=== PATIENT | male | born 1955 | race Caucasian/White ===

== ENCOUNTER 2017-05-05 07:21 | Emergency (ER) | payer OTHER ==
[~2017-05-05] VITALS: Ht 175.3 cm; Wt 73.0 kg
[2017-05-05 08:08] LABS: CLARITY URINE CLEAR (CLEAR); COLOR URINE YELLOW (YELLOW); GLUCOSE URINE NEGATIVE (NEGATIVE); KETONES URINE NEGATIVE (NEGATIVE); LEUKOCYTE ESTERASE URINE NEGATIVE (NEGATIVE); NITRITE URINE NEGATIVE (NEGATIVE); OCCULT BLOOD URINE 3+ (NEGATIVE); PROTEIN URINE TRACE (NEGATIVE); SPECIFIC GRAVITY URINE 1.025 (1.005-1.030)
[2017-05-05] MEDS ORDERED: ONDANSETRON HCL 4MG/2ML VIAL IV STA (08:16)
[2017-05-05] MEDS ORDERED: SODIUM CHLORIDE 0.9% 1,000 ML IV ONE (08:16)
[2017-05-05] MEDS ORDERED: KETOROLAC 30MG/ML VIAL IV ONE ×2 (08:30→10:15)
[2017-05-05 08:36] LABS: BASOPHILS % 0.4 % (0.0-2.0); EOSINOPHILS % 1.1 % (0.0-5.0); HEMATOCRIT. 42.9 % (42.0-52.0); HEMOGLOBIN. 14.4 g/dL (14.0-18.0); LYMPHOCYTES % 7.4 % (20.0-50.0); MEAN CORPUSCULAR VOLUME 92.6 fL (80.0-94.0); MEAN PLATELET VOLUME 8.4 fl (7.4-10.4); MONOCYTES % 2.8 % (2.0-8.0); NEUTROPHILS % 88.3 % (40.0-76.0); PLATELET 255 x1000/uL (130-400); RED BLOOD CELL COUNT 4.63 mill/uL (4.7-6.1); RED CELL DISTRIBUTION WIDTH 13.4 % (11.6-14.6)
[2017-05-05 08:42] LABS: CHLORIDE 102 mEq/L (98-107)
[2017-05-05 08:43] LABS: INR 1.1
[2017-05-05 08:50] LABS: CARBON DIOXIDE 30 mEq/L (21-32)
[2017-05-05] MEDS ORDERED: HYDROCODONE/ACETAMINOPHEN 5/325MG TABLET PO ONE (10:15)
[2017-05-05 10:49] VITALS: BP 155/94
== END 2017-05-05 10:51 | disposition home or self-care (01) ==
LOC: ER 08:10
DX: N13.2 Hydronephrosis with renal and ureteral calculous obstruction (principal); K57.90 Diverticulosis of intestine, part unspecified, without perforation or abscess without bleeding; R03.0 Elevated blood-pressure reading, without diagnosis of hypertension; N40.0 Benign prostatic hyperplasia without lower urinary tract symptoms; K76.89 Other specified diseases of liver; E78.00 Pure hypercholesterolemia, unspecified; K40.20 Bilateral inguinal hernia, without obstruction or gangrene, not specified as recurrent; R11.2 Nausea with vomiting, unspecified
CPT/HCPCS: 36415; 74176; 80053; 81001; 85025; 85610; 96361; 96374; 96375; 99285; J1885; J2405; J7030